=== PATIENT | female | born 1960 | race Caucasian/White ===

== ENCOUNTER 2021-02-26 15:01 | Emergency (ER) | payer BC ==
[~2021-02-26] VITALS: Ht 154.9 cm; Wt 53.2 kg
[2021-02-26 15:21] VITALS: BP 127/68
--- NOTE | 2021-02-26 17:37 | NUR ---
PATIENT WAS SEEN, EVALUATED AND DC PER PROVIDER.
== END 2021-02-26 17:37 | disposition home or self-care (01) ==
LOC: ER 15:03
DX: G47.419 Narcolepsy without cataplexy (principal); Z88.1 Allergy status to other antibiotic agents; Z88.5 Allergy status to narcotic agent
CPT/HCPCS: 99281